=== PATIENT | male | born 1985 | race Caucasian/White ===

== ENCOUNTER 2017-01-14 15:47 | Emergency (ER) | payer OTHER ==
--- NOTE | 2017-01-14 16:24 | EDM.PDOC ---
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 Patient states he heard [facility] brought him in reporting a deformity of his right knee. Patient arrived without obvious deformity and tenderness of the lateral part of his knee Review of systems: As per history of present illness and below otherwise all systems reviewed and negative. Past medical history: As per history of present illness and as reviewed below otherwise noncontributory. Surgical history: As per history of present illness and as reviewed below otherwise noncontributory. Social history: No reported history of drug or alcohol abuse. Family history: As per history of present illness and as reviewed below otherwise noncontributory. Physical exam: General: Well developed, well nourished in NAD HEENT: Atraumatic, normocephalic, pupils reactive, negative for conjunctival pallor or scleral icterus, mucous membranes moist, throat clear, neck supple, nontender, trachea midline. Lungs: Clear to auscultation, breath sounds equal bilaterally, chest nontender. Heart: S1S2, regular, negative for clicks, rubs, or JVD. Abdomen: Soft, nondistended, nontender. Negative for masses or hepatosplenomegaly. Negative for costovertebral tenderness. Pelvis: Stable nontender. Genitourinary: Deferred. Rectal: Deferred. Extremities: Atraumatic, tenderness to palpation of right lateral knee, no effusion, limited range of motion secondary to pain negative for cords or calf pain. Neurovascular unremarkable. Neuro: Awake, alert, oriented. Cranial nerves II through XII unremarkable. Cerebellum unremarkable. Motor and sensory unremarkable throughout. Exam nonfocal. Diagnostics: [] X-ray Therapeutics: [] Knee immobilizer Impression: [] Likely patellar dislocation with spontaneous reduction of leg extension Plan: [] Knee immobilizer, ice, Motrin, followup with Dr. Garcia next week Definitive disposition and diagnosis as appropriate pending reevaluation and review of above. Allergies/ADRs: Allergies cephalexin Allergy (Verified 01/14/17 15:49) Other lamotrigine [From Lamictal] Allergy (Verified 01/14/17 15:49) Other Home Medications: Ambulatory Orders Divalproex Sodium [Depakote] 250 mg PO BID 01/14/17 [Confirmed 01/14/17] PARoxetine [Paxil CR] 25 mg PO DAILY 01/14/17 [Confirmed 01/14/17] Past Medical History Neurological History: Reports: Seizure Other Neuro History: epilepsy Psychiatric History: Reports: Depression - Past Surgical History Neurological Surgical History: Reports: None Social & Family History - Family History Family Medical History: Noncontributory - Caffeine Use Caffeine Use: Reports: Coffee Other Caffeine Use: coffee stimulant supplement - Recreational Drug Use Recreational Drug Use: No Review of Systems - Review of Systems Review Of Systems: See Below (See history of present illness) Trauma Exam - Physical Exam Exam: See Below (See history of present illness) Course - Vital Signs Last Recorded V/S: Last Vital Signs Temp 36.8 C 01/14/17 15:47 Pulse 104 H 01/14/17 15:47 Resp 16 01/14/17 15:47 BP 140/78 01/14/17 15:47 Pulse Ox 94 L 01/14/17 15:47 - Orders/Labs/Meds Orders: Active Orders 24 hr Category Date Time Status Orthopedic Device Education [RC] Click To Edit Care 01/14/17 16:37 Ordered Knee 3V Rt [CR] Stat Exams 01/14/17 15:54 Taken Departure - Departure Time of Disposition: 16:39 Disposition: Home, Self-Care 01 Condition: good Clinical Impression: Internal derangement of right knee Forms: ED Department Discharge Additional Instructions: The following information is given to patients seen in the emergency department who are being discharged to home. This information is to outline your options for follow-up care. We provide all patients seen in our emergency department with a follow-up referral. The need for follow-up, as well as the timing and circumstances, are variable depending upon the specifics of your emergency department visit. If you don't have a primary care physician on staff, we will provide you with a referral. We always advise you to contact your personal physician following an emergency department visit to inform them of the circumstance of the visit and for follow-up with them and/or the need for any referrals to a consulting specialist. The emergency department will also refer you to a specialist when appropriate. This referral assures that you have the opportunity for follow-up care with a specialist. All of these measure are taken in an effort to provide you with optimal care, which includes your follow-up. Under all circumstances we always encourage you to contact your private physician who remains a resource for coordinating your care. When calling for follow-up care, please make the office aware that this follow-up is from your recent emergency room visit. If for any reason you are refused follow-up, please contact the [facility] Emergency Department at and asked to speak to the emergency department charge nurse. Ice, elevate, Motrin for pain, wear knee immobilizer for stability, followup with Dr. Garcia [facility] [address], [address] [place] [address] - My Orders Last 24 Hours: My Active Orders 01/14/17 15:54 Knee 3V Rt [CR] Stat 01/14/17 16:37 Orthopedic Device Education [RC] Click To Edit - Assessment/Plan Last 24 Hours: My Active Orders 01/14/17 15:54 Knee 3V Rt [CR] Stat 01/14/17 16:37 Orthopedic Device Education [RC] Click To Edit
[2017-01-14 16:54] VITALS: BP 138/70
--- NOTE | 2017-01-15 21:42 | CR ---
EXAM DATE: 01/14/17 PATIENT'S AGE: 31 Patient: MARIAA COWAN Facility: [place], [place] Site . Site : 1985 Study: XRay Knee Right [id number]/12/2017 4:11:23 PM Ordering Physician: Boo Holley Final Report: INDICATION: Injury/pain. Twisted. Technique: Three views right knee. Findings: Slight hypertrophic change at the superior patellofemoral compartment. No fracture or dislocation in right knee. Minimal narrowing medial compartment of the right knee. Right knee otherwise negative. Dictated by Marcsu Loera MD @ Jan 14 2017 4:35PM (Electronic Signature) Report Signed by Proxy and Original Signed Document filed in the Medical Record. MTDD
== END 2017-01-14 16:53 | disposition home or self-care (01) ==
LOC: MW.ED 15:47
DX: M23.91 Unspecified internal derangement of right knee (principal); F32.9 Major depressive disorder, single episode, unspecified; Z88.1 Allergy status to other antibiotic agents; Z88.8 Allergy status to other drugs, medicaments and biological substances; X50.1XXA Overexertion from prolonged static or awkward postures, initial encounter
CPT/HCPCS: 73562-26-RT; 73562-RT; 99282; 99284

== ENCOUNTER → 2017-01-25 | Outpatient (CLI) | payer OTHER ==
--- NOTE | 2017-01-25 12:35 | CR ---
EXAMINATION: Right knee HISTORY: Pain COMPARISON: 01/14/2017 TECHNIQUE: 3 views FINDINGS/IMPRESSION: There is no acute osseous, dislocation, or fracture identified. Bone mineraliza tion and joint spaces appear preserved. There is a possible trace suprapatellar joint effusion.
== END ==
LOC: MW.CHORTHO 07:52
PROVIDERS: ATTEND Physician Assistant
DX: M25.561 Pain in right knee (principal)
CPT/HCPCS: 73562-26-RT; 73562-RT

== ENCOUNTER 2017-02-17 17:57 | Emergency (ER) | payer OTHER ==
[2017-02-17] MEDS ORDERED: Ketorolac 60 MG/2 ML SDV IM ONE (18:22)
--- NOTE | 2017-02-17 18:26 | EDM.PDOC ---
ED HPI Trauma - General Chief Complaint: Lower Extremity Injury/Pain Stated Complaint: PAIN RT KNEE Time Seen by Provider: 02/17/17 18:10 Source: Reports: Patient History Limitations: Reports: No limitations - History of Present Illness INITIAL COMMENTS - FREE TEXT/NARRATIVE: History of present illness: [31-year-old male presenting with acute onset right-sided knee pain patient has a history of injury previously approximately a month ago in this knee and while ambulating in [place] [address] his left knee gave out and he landed full force onto his right knee now he is indicating he is having stiffness pain at 7/10 and he is concerned that he might have damaged some of the patella and or cartilage.] Review of systems: As per history of present illness and below otherwise all systems reviewed and negative. Past medical history: As per history of present illness and as reviewed below otherwise noncontributory. Surgical history: As per history of present illness and as reviewed below otherwise noncontributory. Social history: No reported history of drug or alcohol abuse. Family history: As per history of present illness and as reviewed below otherwise noncontributory. Physical exam: HEENT: Atraumatic, normocephalic, pupils reactive, negative for conjunctival pallor or scleral icterus, mucous membranes moist, throat clear, neck supple, nontender, trachea midline. Lungs: Clear to auscultation, breath sounds equal bilaterally, chest nontender. Heart: S1S2, regular, negative for clicks, rubs, or JVD. Abdomen: Soft, nondistended, nontender. Negative for masses or hepatosplenomegaly. Negative for costovertebral tenderness. Pelvis: Stable nontender. Genitourinary: Deferred. Rectal: Deferred. Extremities: Atraumatic, negative for cords or calf pain. Neurovascular unremarkable. Neuro: Awake, alert, oriented. Cranial nerves II through XII unremarkable. Cerebellum unremarkable. Motor and sensory unremarkable throughout. Exam nonfocal. Diagnostics: [X-ray of right knee] Therapeutics: [Toradol 60 mg IM] Impression: [Knee pain] Plan: [Pain meds] Definitive disposition and diagnosis as appropriate pending reevaluation and review of above. Allergies/ADRs: Allergies cephalexin Allergy (Verified 02/17/17 18:20) Other lamotrigine [From Lamictal] Allergy (Verified 02/17/17 18:20) Other Home Medications: Ambulatory Orders Divalproex Sodium [Depakote] 250 mg PO BID 01/14/17 [Confirmed 02/17/17] PARoxetine [Paxil CR] 25 mg PO DAILY 01/14/17 [Confirmed 02/17/17] Past Medical History Neurological History: Reports: Seizure Other Neuro History: epilepsy Psychiatric History: Reports: Depression - Past Surgical History Neurological Surgical History: Reports: None Social & Family History - Family History Family Medical History: Noncontributory - Caffeine Use Caffeine Use: Reports: Coffee Other Caffeine Use: coffee stimulant supplement - Recreational Drug Use Recreational Drug Use: No Review of Systems - Review of Systems Review Of Systems: See Below (See history of present illness) Trauma Exam - Physical Exam Exam: See Below (See history of present illness) Course - Vital Signs Last Recorded V/S: Last Vital Signs Temp 36.2 C 02/17/17 17:59 Pulse 84 02/17/17 17:59 Resp 16 02/17/17 17:59 BP 143/87 H 02/17/17 17:59 Pulse Ox 95 02/17/17 17:59 - Orders/Labs/Meds Orders: Active Orders 24 hr Category Date Time Status Immobilizer [RC] ASDIRECTED Care 02/17/17 19:16 Ordered Knee 3V Rt [CR] Stat Exams 02/17/17 18:22 Taken Meds: Medications Discontinued Medications Generic Name Dose Route Start Last Admin Trade Name Cheyanne PRN Reason Stop Dose Admin Ketorolac Tromethamine 60 mg 02/17/17 18:22 02/17/17 18:56 Toradol IM 02/17/17 18:23 60 mg ONETIME ONE Administration Departure - Departure Time of Disposition: 19:20 Disposition: Home, Self-Care 01 Condition: good Clinical Impression: Knee pain, right Qualifiers: Chronicity: acute Qualified Code(s): M25.561 - Pain in right knee Instructions: Knee Immobilizer, [id number], Crutch Use, [id number] Forms: ED Department Discharge Additional Instructions: The following information is given to patients seen in the emergency department who are being discharged to home. This information is to outline your options for follow-up care. We provide all patients seen in our emergency department with a follow-up referral. The need for follow-up, as well as the timing and circumstances, are variable depending upon the specifics of your emergency department visit. If you don't have a primary care physician on staff, we will provide you with a referral. We always advise you to contact your personal physician following an emergency department visit to inform them of the circumstance of the visit and for follow-up with them and/or the need for any referrals to a consulting specialist. The emergency department will also refer you to a specialist when appropriate. This referral assures that you have the opportunity for follow-up care with a specialist. All of these measure are taken in an effort to provide you with optimal care, which includes your follow-up. Under all circumstances we always encourage you to contact your private physician who remains a resource for coordinating your care. When calling for follow-up care, please make the office aware that this follow-up is from your recent emergency room visit. If for any reason you are refused follow-up, please contact the [facility] Emergency Department at and asked to speak to the emergency department charge nurse. Take Medication as directed Use immobilizer and use crutches as needed Followup with PCP in one to 2 days Followup with the ER as needed as discussed - My Orders Last 24 Hours: My Active Orders 02/17/17 18:22 Knee 3V Rt [CR] Stat 02/17/17 19:16 Immobilizer [RC] ASDIRECTED - Assessment/Plan Last 24 Hours: My Active Orders 02/17/17 18:22 Knee 3V Rt [CR] Stat 02/17/17 19:16 Immobilizer [RC] ASDIRECTED
[2017-02-17 20:09] VITALS: BP 137/85
--- NOTE | 2017-02-19 10:47 | CR ---
EXAM DATE: 02/17/17 PATIENT'S AGE: 31 Patient: MARIAA COWAN Facility: [place], [place] Site . Site : 1985 Study: XRay Knee Right [id number]/15/2017 6:52:22 PM Ordering Physician: Doctor Villa Final Report: Right knee 3 VIEWS INDICATION: Pain. IMPRESSION: No visualized fracture. Alignments anatomic. Preservation of joint space. Possible large knee effusion. This has increased. Comparison: 01/25/2017. Dictated by Gonzalez Geiger MD @ Feb 17 2017 6:59PM (Electronic Signature) Report Signed by Proxy and Original Signed Document filed in the Medical Record. [facility]
== END 2017-02-17 19:45 | disposition home or self-care (01) ==
LOC: MW.ED 17:57
DX: M25.561 Pain in right knee (principal); G40.909 Epilepsy, unspecified, not intractable, without status epilepticus; F32.9 Major depressive disorder, single episode, unspecified; Z79.899 Other long term (current) drug therapy; Z88.1 Allergy status to other antibiotic agents; Z88.8 Allergy status to other drugs, medicaments and biological substances
CPT/HCPCS: 73562; 96372; 99284; J1885; 99283

== ENCOUNTER 2017-06-25 06:28 | Day surgery (SDC) | payer OTHER ==
[~2017-06-25 06:28] MED LIST: Clindamycin Phosphate in D5W 900 MG in Premix Bag 1 BAG IV ONE; Lactated Ringers 1,000 ML IV SCH
[2017-06-25] MEDS ORDERED: Lidocaine 2% 5 ML SDV ONE (07:22)
[2017-06-25] MEDS ORDERED: Propofol 200 MG/20 ML SDV ONE (07:23)
[2017-06-25] MEDS ORDERED: Ketorolac 30 MG/ML SDV ONE (07:24)
[2017-06-25] MEDS ORDERED: Midazolam 1 MG/ML 2 ML SDV ONE (07:24)
[2017-06-25] MEDS ORDERED: Ondansetron 4 MG/2 ML SDV ONE (07:24)
[2017-06-25] MEDS ORDERED: fentaNYL 100 MCG/2 ML SDV ONE ×2 (07:24→07:28)
--- NOTE | 2017-06-25 07:26 | PCM.PREANE ---
Preanesthetic Assessment - Anesthesia/Transfusion/Family Hx Anesthesia History: Prior Anesthesia Without Reaction Family History of Anesthesia Reaction: No Transfusion History: No Prior Transfusion(s) - Review of Systems General: No Symptoms Pulmonary: No Symptoms Cardiovascular: No Symptoms Gastrointestinal: No Symptoms Neurological: No Symptoms Other: Reports: None - Physical Assessment NPO Status Date: 06/25/17 NPO Status Time: 00:00 O2 Sat by Pulse Oximetry: 94 Respiratory Rate: 16 Vital Signs: Last Vital Signs Temp 36.9 C 06/25/17 06:30 Pulse 73 06/25/17 06:30 Resp 16 06/25/17 06:30 BP 101/80 06/25/17 06:30 Pulse Ox 94 L 06/25/17 06:30 Height: 1.85 m Weight: 142.882 kg ASA Class: 3 Mental Status: Alert & Oriented x3 Airway Class: Mallampati = 1 Dentition: Reports: Normal Dentition ROM/Head Extension: Full Lungs: Clear to Auscultation, Normal Respiratory Effort Cardiovascular: Regular Rate, Regular Rhythm - Allergies Allergies/Adverse Reactions: Allergies Allergy/AdvReac Type Severity Reaction Status Date / Time cephalexin Allergy Cannot Verified 06/25/17 07:07 Remember lamotrigine [From Lamictal] Allergy decreased Verified 06/25/17 07:07 white cell blood count - Anesthesia Plan Pre-Op Medication Ordered: None - Acknowledgements Anesthesia Type Planned: General Anesthesia Pt an Appropriate Candidate for the Planned Anesthesia: Yes Alternatives and Risks of Anesthesia Discussed w Pt/Guardian: Yes Pt/Guardian Understands and Agrees with Anesthesia Plan: Yes Additional Comments: pmh: [place], [place], smoker, seizure disorder (last seizure 2007), exercise induces asthma. 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 yrs ago - Infectious Disease History Infectious Disease History: Reports: MRSA - Past Surgical History Head Surgeries/Procedures: Reports: None HEENT Surgical History: Reports: Adenoidectomy, Tonsillectomy Other HEENT Surgeries/Procedures: hx of T&A with uvulectomy for diagnosis of sleep apnea Neurological Surgical History: Reports: None - SUBSTANCE USE Smoking Status *Q: Never Smoker Tobacco Use Within Last Twelve Months: Snuff/Dip Recreational Drug Use History: No - HOME MEDS Home Medications: Home Meds Divalproex Sodium [Depakote] 250 mg PO BID 01/14/17 [History] PARoxetine [Paxil CR] 20 mg PO DAILY 01/14/17 [History] Fluticasone Propionate [Flonase Allergy Relief] 1 spray NASBOTH ASDIRECTED 06/19 [History] - CURRENT (IN HOUSE) MEDS Current Meds: Current Medications Hydrocodone Bitart/Acetaminophen ([place] 325-5 Mg) 1 - 2 tab PO Q4H PRN PRN Reason: Pain Lactated Ringer's (Ringers, Lactated) 1,000 mls @ 100 mls/hr IV ASDIRECTED [facility] Last Admin: 06/25/17 06:55 Dose: 100 mls/hr Discontinued Medications Clindamycin Phosphate 900 mg/ (Premix) 50 mls @ 100 mls/hr IV ONETIME ONE Stop: 06/25/17 06:29
[2017-06-25] MEDS ORDERED: Lidocaine 1% 20 ML MDV ONE (07:45)
[2017-06-25] MEDS ORDERED: Acetaminophen/HYDROcodone 325-5 MG Tab PO PRN (08:00)
[2017-06-25] MEDS ORDERED: fentaNYL 100 MCG/2 ML SDV IVPUSH PRN (09:06)
--- NOTE | 2017-06-25 10:55 | PCM.OPNOTE ---
- General Post-Op/Procedure Note Date of Surgery/Procedure: 06/25/17 Operative Procedure(s): R knee arthroscopy with PLM/PMM Post-Op Diagnosis: R knee partial ACL tear, med/lat meniscus tear Anesthesia Technique: General LMA Primary Surgeon: Najma Garcia [employer] Systems Administrator: Max Polo in mLs: 5 Condition: Good Free Text/Narrative:: tt=23 min #[id number] Intake & Output 06/24/17 06/25/17 06/25/17 22:59 06:59 14:59 Intake Total 900 Balance 900
--- NOTE | 2017-06-25 12:41 | PCM.POSTAN ---
POST ANESTHESIA ASSESSMENT - MENTAL STATUS Mental Status: Alert, Oriented - RESPIRATORY Respiratory Status: Respiratory Rate WNL, Airway Patent, O2 Saturation Stable - CARDIOVASCULAR CV Status: Pulse Rate WNL, Blood Pressure Stable - GASTROINTESTINAL GI Status: No Symptoms - POST OP HYDRATION Hydration Status: Adequate & Stable
--- NOTE | 2017-06-25 12:42 | PCM48HPAN ---
Post Anesthesia Note - EVALUATION WITHIN 48HRS OF ANESTHETIC Vital Signs in Normal Range: Yes Patient Participated in Evaluation: Yes Respiratory Function Stable: Yes Airway Patent: Yes Cardiovascular Function Stable: Yes Hydration Status Stable: Yes Pain Control Satisfactory: Yes Nausea and Vomiting Control Satisfactory: Yes Mental Status Recovered: Yes
[2017-06-25 12:53] VITALS: BP 109/65
--- NOTE | 2017-06-25 14:17 | OR ---
SURGEON: Najma Garcia MD DATE OF PROCEDURE: 06/25/2017 PREOPERATIVE DIAGNOSES: 1. Right knee medial meniscus tear. 2. Right knee lateral meniscus tear. POSTOPERATIVE DIAGNOSES: 1. Right knee medial meniscus tear. 2. Right knee lateral meniscus tear. 3. Right knee partial anterior cruciate ligament tear. PROCEDURES: Right knee arthroscopy with partial, medial, and lateral meniscectomy. TANK STAVE ASSEMBLER: Max Polo PA-C. ANESTHESIA: General. ESTIMATED BLOOD LOSS: 5 mL. TOURNIQUET TIME: 23 minutes. COMPLICATIONS: None. DVT PROPHYLAXIS: Not indicated. IMPLANTS USED: None. BRIEF HISTORY: Brian is a 32-year-old male, who has had complaint of right knee pain. He had failed conservative treatment. Due to his lack of response to conservative treatment, I did recommend surgical intervention. The risks and goals of procedure were discussed with the patient and were documented preoperatively. He agreed to proceed. DESCRIPTION OF PROCEDURE: The patient was properly identified and brought to the operating room. He was transferred from the OR cart and placed on the operating room table in supine position. General anesthesia was administered. After adequate anesthesia was obtained, a well-padded tourniquet was applied to the right lower extremity. The right lower extremity was then prepped in standard fashion using ChloraPrep solution. It was then sterilely draped. A time-out was performed to ensure correct site and procedure. Preoperative antibiotics were given. The surgical site had been marked preoperatively. An Esmarch was used to exsanguinate the right lower extremity and the tourniquet was inflated to 250 mmHg. A lateral portal arthrotomy was established. Blunt trocar and cannula were introduced into the suprapatellar pouch. Camera, inflow, and outflow were assembled. No signs of synovitis were noted. The patella patellofemoral joint was visualized. There was an area of cartilage damage along the superolateral aspect of the patella. There was minor degenerative changes along the central portion of the trochlear groove as well. The patella appeared to track centrally. I then extended down the lateral and medial gutter. No loose bodies were identified. I then entered the medial compartment. A medial portal arthrotomy was established. A blunt probe was inserted. He was found to have a bucket-handle tear of the medial meniscus. This was in the white zone and was not amenable to repair. Using a combination of biters and iram, the meniscus tear was resected without difficulty. A shaver was used to smooth the edges. The meniscus was again probed and the remainder was found to be stable. 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 This did have some loose cartilage and a chondroplasty was also performed. I then entered the notch. The ACL was visualized. The anterior portion appeared to be torn and was scarred to the PCL. He did have a portion that remained attached to the lateral femoral condyle posteriorly. The PCL was also probed and found to be intact. I then entered the lateral compartment. Again, noted was a bucket-handle tear of the lateral meniscus at the white zone, which again was not amenable to repair. Using a combination of biters and shaver, this was resected back to a stable remnant. The meniscus was then extensively probed and the remainder was found to be stable. The joint surfaces showed minor grade 1 chondromalacia only. I then re-entered the patellofemoral joint. The area of chondromalacia which measured approximately 5 mm x 5 mm over the lateral facet of the patella was inspected. There were some loose cartilage pieces and a chondroplasty was performed. No remaining loose fragments were identified. The instruments were then removed from the knee. The portal sites were closed with 3-0 nylon. Lidocaine 1% was injected along the portal tracts. Xeroform gauze was placed over the wound and a bulky dressing was applied. The tourniquet was then deflated. At the completion, I did perform both an anterior drawer and pivot-shift test on him. He did have mild anterior translation with anterior drawer testing and did show a negative pivot-shift. He was awakened from his anesthetic and transferred back to the operating room cart. He was brought to recovery room in stable condition. All needle and sponge counts were correct. ELENA / KWASI /[id number]
== END 2017-06-25 11:05 | disposition home or self-care (01) ==
LOC: MW.SDS 06:28
PROVIDERS: ATTEND Orthopaedic Surgery
DX: S83.211A Bucket-handle tear of medial meniscus, current injury, right knee, initial encounter (principal); S83.251A Bucket-handle tear of lateral meniscus, current injury, right knee, initial encounter; M17.11 Unilateral primary osteoarthritis, right knee; M94.261 Chondromalacia, right knee; S83.511A Sprain of anterior cruciate ligament of right knee, initial encounter; J45.909 Unspecified asthma, uncomplicated; G40.909 Epilepsy, unspecified, not intractable, without status epilepticus; F41.9 Anxiety disorder, unspecified; F32.9 Major depressive disorder, single episode, unspecified; Z86.14 Personal history of Methicillin resistant Staphylococcus aureus infection; Z88.1 Allergy status to other antibiotic agents; Z88.8 Allergy status to other drugs, medicaments and biological substances; Z90.89 Acquired absence of other organs; Z98.890 Other specified postprocedural states; Z79.899 Other long term (current) drug therapy
CPT/HCPCS: 29880; J2250; J2405; J3010; J7120; 01400; 88304; J1885; J2704

== ENCOUNTER 2017-09-19 12:33 | Day surgery (SDC) | payer OTHER ==
[~2017-09-19 12:33] MED LIST changes: +Acetaminophen/HYDROcodone 325-10 MG Tab PO PRN; -Clindamycin Phosphate in D5W 900 MG in Premix Bag 1 BAG IV ONE; +Clindamycin Phosphate in D5W 900 MG in Premix Bag 1 BAG IV SCH; +Ketorolac 10 MG Tab PO SCH; +Lidocaine 1% 20 ML MDV ONE
--- NOTE | 2017-09-19 13:53 | PCM.PREANE ---
Preanesthetic Assessment - Procedure Proposed Procedure: Right knee arthroscopy and ACL reconstruction - Anesthesia/Transfusion/Family Hx Anesthesia History: Prior Anesthesia Without Reaction (June arthroscopy with menisectomy) Family History of Anesthesia Reaction: No Transfusion History: No Prior Transfusion(s) Intubation History: Unknown - Review of Systems General: No Symptoms, Other (Obesity) Pulmonary: Other (Asthmatic) Cardiovascular: No Symptoms Gastrointestinal: No Symptoms Neurological: Seizure (took Depakote at 10am today; etiology undetermined - since 2004. no seizure since 2007.) Other: Reports: Depression, Anxiety - Physical Assessment NPO Status Date: 09/18/17 NPO Status Time: 23:55 O2 Sat by Pulse Oximetry: 93 Respiratory Rate: 16 Vital Signs: Last Vital Signs Temp 96.8 F 09/19/17 13:26 Pulse 73 09/19/17 13:26 Resp 16 09/19/17 13:26 BP 139/73 09/19/17 13:26 Pulse Ox 93 L 09/19/17 13:26 Height: 6 ft Weight: 324 lb ASA Class: 3 Mental Status: Alert & Oriented x3 Airway Class: Mallampati = 1 Dentition: Reports: Normal Dentition Thyro-Mental Finger Breadths: 3 Mouth Opening Finger Breadths: 3 ROM/Head Extension: Full Lungs: Clear to Auscultation, Normal Respiratory Effort Cardiovascular: Regular Rate, Regular Rhythm, No Murmurs Other: wears glasses - Allergies Allergies/Adverse Reactions: Allergies Allergy/AdvReac Type Severity Reaction Status Date / Time cephalexin Allergy Cannot Verified 06/25/17 07:07 Remember lamotrigine [From Lamictal] Allergy decreased Verified 06/25/17 07:07 white cell blood count - Blood Blood Available: No Product(s) Available: None - Acknowledgements Anesthesia Type Planned: General Anesthesia Pt an Appropriate Candidate for the Planned Anesthesia: Yes Alternatives and Risks of Anesthesia Discussed w Pt/Guardian: Yes Pt/Guardian Understands and Agrees with Anesthesia Plan: Yes PreAnesthesia Questionnaire HEENT History: Reports: Other (See Below) Other HEENT History: wears glasses Respiratory History: Reports: Asthma Musculoskeletal History: Reports: None Neurological History: Reports: Seizure Other Neuro History: epilepsy Psychiatric History: Reports: Anxiety, Depression Endocrine/Metabolic History: Reports: Obesity/BMI 30+ Immunologic History: Reports: Other (See Below) Other Immunologic History: 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 yrs ago - Infectious Disease History Infectious Disease History: Reports: MRSA - Past Surgical History Head Surgeries/Procedures: Reports: None HEENT Surgical History: Reports: Adenoidectomy, Tonsillectomy Other HEENT Surgeries/Procedures: hx of T&A with uvulectomy for diagnosis of sleep apnea Neurological Surgical History: Reports: None Musculoskeletal Surgical History: Reports: Arthroscopic Knee - SUBSTANCE USE Smoking Status *Q: Never Smoker Tobacco Use Within Last Twelve Months: Snuff/Dip Recreational Drug Use History: No - HOME MEDS Home Medications: Home Meds Divalproex Sodium [Depakote] 750 mg PO BID 01/14/17 [History] PARoxetine [Paxil CR] 20 mg PO DAILY 01/14/17 [History] Fluticasone Propionate [Flonase Allergy Relief] 1 spray NASBOTH ASDIRECTED PRN 06/19/17 [History] Albuterol Sulfate [Proair Hfa] 2 puff INH ASDIRECTED PRN 09/14/17 [History] - CURRENT (IN HOUSE) MEDS Current Meds: Current Medications Hydrocodone Bitart/Acetaminophen (Sperry 325-10 Mg) 1 - 2 tab PO Q4H PRN PRN Reason: Pain Lactated Ringer's (Ringers, Lactated) 1,000 mls @ 100 mls/hr IV ASDIRECTED SAMI Last Admin: 09/19/17 13:38 Dose: 100 mls/hr Vancomycin HCl 1 gm/ Sodium (Chloride) 250 mls @ 250 mls/hr IV ONETIME ONE Stop: 09/19/17 14:32 Last Admin: 09/19/17 13:43 Dose: 250 mls/hr Ketorolac Tromethamine (Toradol) 10 mg PO Q6H [facility] Stop: 09/24/17 08:01 Discontinued Medications Clindamycin Phosphate 900 mg/ (Premix) 50 mls @ 100 mls/hr IV ONCALL SAMI Stop: 09/19/17 13:35 Lidocaine HCl (Xylocaine 1%) Confirm Administered Dose 20 ml .ROUTE .STK-MED ONE Stop: 09/18/17 15:04
[2017-09-19] MEDS ORDERED: Propofol 200 MG/20 ML SDV ONE ×3 (15:27→19:30)
[2017-09-19] MEDS ORDERED: Lidocaine 2% 5 ML SDV ONE ×2 (15:27→15:29)
[2017-09-19] MEDS ORDERED: fentaNYL 250 MCG/5 ML SDV ONE (15:28)
[2017-09-19] MEDS ORDERED: Midazolam 1 MG/ML 2 ML SDV ONE (15:28)
[2017-09-19] MEDS ORDERED: fentaNYL 100 MCG/2 ML SDV ONE (15:28)
[2017-09-19] MEDS ORDERED: HYDROmorphone 2 MG/ML Syringe ONE (15:34)
[2017-09-19] MEDS ORDERED: Rocuronium 10 MG/ML 10 ML Syringe ONE (15:35)
[2017-09-19] MEDS ORDERED: Succinylcholine/Normal Saline 200 MG/10 ML Syringe ONE (15:35)
[2017-09-19] MEDS ORDERED: Ondansetron 4 MG/2 ML SDV ONE (18:07)
[2017-09-19] MEDS ORDERED: Ketorolac 30 MG/ML SDV ONE (18:08)
[2017-09-19] MEDS ORDERED: HYDROmorphone 2 MG/ML Syringe IVPUSH ONE (19:05)
[2017-09-19] MEDS ORDERED: fentaNYL 100 MCG/2 ML SDV IVPUSH PRN (19:05)
--- NOTE | 2017-09-19 20:31 | PCM.OPNOTE ---
- General Post-Op/Procedure Note Date of Surgery/Procedure: 09/19/17 Operative Procedure(s): R knee arthroscopy with partial medial menisectomy and arthroscopically aided ACL reconstruction with allograft Post-Op Diagnosis: R knee medial meniscus tear, ACL tear Anesthesia Technique: General ET Tube Primary Surgeon: Najma Garcia Progressive Assembler And Fitter: Max Polo in mLs: 10 Condition: Good Free Text/Narrative:: tt=72 min #[id number]
--- NOTE | 2017-09-19 21:04 | PCM.POSTAN ---
POST ANESTHESIA ASSESSMENT - MENTAL STATUS Mental Status: Oriented, Somnolent Free Text/Narrative:: Remains sleepy after several hours of anesthesia, but is comfortable i.e. limited pain. - VITAL SIGNS Pulse Rate: 75 SaO2: 93 Resp Rate: 12 Blood Pressure: 123/64 - RESPIRATORY Respiratory Status: Respiratory Rate WNL, Airway Patent, O2 Saturation Stable, Supplemental Oxygen - CARDIOVASCULAR CV Status: Pulse Rate WNL, Blood Pressure Stable - GASTROINTESTINAL GI Status: No Symptoms - POST OP HYDRATION Hydration Status: Adequate & Stable
--- NOTE | 2017-09-19 23:28 | OR ---
SURGEON: Najma Garcia MD DATE OF PROCEDURE: 09/19/2017 PREOPERATIVE DIAGNOSIS: Right knee anterior cruciate ligament tear. POSTOPERATIVE DIAGNOSES: 1. Right knee anterior cruciate ligament tear. 2. Right knee medial meniscus tear. PROCEDURES: Right knee arthroscopy with: 1. Partial medial meniscectomy. 2. Arthroscopically aided anterior cruciate ligament reconstruction using allograft. MARKETING CONTENT SPECIALIST: Max Polo PA-C. ANESTHESIA: General. ESTIMATED BLOOD LOSS: 10 mL. TOURNIQUET TIME: 72 minutes. COMPLICATIONS: None. DVT PROPHYLAXIS: PAS boot to the nonoperative leg. IMPLANTS USED: Arthrex ACL TightRope fixation system. BRIEF HISTORY: Brian is a 32-year-old male, who has had complaint of progressive right knee pain. An MRI did show a tear of the anterior cruciate ligament. Due to his lack of response to conservative treatment, I did recommend surgical intervention. The risks and goals of procedure were discussed with the patient and were documented preoperatively. He agreed to proceed. DESCRIPTION OF PROCEDURE: The patient was properly identified and brought to the operating room. He was transferred from the OR cart and placed on the operating room table in supine position. General anesthesia was administered. After adequate anesthesia was obtained, a well-padded tourniquet was applied to the right lower extremity. The right lower extremity was then prepped in standard fashion using ChloraPrep solution. It was then sterilely draped. A time-out was performed to ensure correct site and procedure. Preoperative antibiotics were given. The surgical site had been marked preoperatively. An Esmarch was used to exsanguinate the right lower extremity and the tourniquet was inflated to 300 mmHg. A lateral portal arthrotomy was established. Blunt trocar and cannula were introduced into the suprapatellar pouch. Camera, inflow, and outflow were assembled. Suprapatellar pouch showed no significant synovitis. The patellofemoral joint was visualized. 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 No significant degenerative changes were noted along the trochlea. The patella appeared to track centrally. I then extended down the lateral and medial gutter. No loose bodies were identified. I then entered the medial compartment. A medial portal arthrotomy was established. A blunt probe was inserted. The meniscus was probed. He was found to have a radial tear of the posterior horn of the medial meniscus with a split thickness tear as well. Using a combination of biter and shaver, this was resected back to a stable remnant. It was again probed and found to be stable. The joint surfaces showed minor grade 1 to grade 2 chondromalacia changes. I then entered the notch. The ACL was visualized, however, it appeared to be scarred to the posterior cruciate ligament. It did not have any firm attachment to the lateral femoral condyle. The PCL was probed and found to be stable. I then entered the lateral compartment. The lateral meniscus showed minor degenerative fraying along the central portion. It was probed and found to be stable. No significant degenerative changes were noted. I then re-entered the notch. A portion of the ACL was removed, where it was scarred to the PCL. A portion of the origin of the ACL on the tibial plateau was kept intact to aid in proprioception. The wall of the lateral femoral condyle was then cleared. A small notchplasty was performed to aid in visualization. A large curette was used to clear the soft tissue posteriorly to make sure we had adequate visualization of the entire wall. The allograft was prepared in standard fashion on the back table. It was appropriately measured. The tibial guide was then inserted. An incision was made over the proximal medial tibia. The subcutaneous tissues were incised down to the level of the bone. The periosteum was elevated and cleared. The guide was then placed approximately 7 mm anterior to the posterior cruciate ligament, just parallel to the anterior horn of the lateral meniscus. A guide pin was then drilled through the guide. I felt that the position was appropriate. The graft measured 8.5 mm. I elected to use a 9 mm reamer through the tibia. The tibia was reamed over the guide pin. A shaver was used to remove the bony debris and a rasp was used to smooth the posterior edge of the tibial tunnel. A cannula was then placed to aid in water retention. The camera was then changed to the medial portal. The femoral guide was then placed. The incisions were made over the lateral aspect of the distal femur. The subcutaneous tissues were incised. The iliotibial band was also incised and the tissues were spread. The cannula was placed down to the bone. The femoral guide was then held in position as the FlipCutter guide pin was placed. It was felt that its position was adequate. An 8.5 mm FlipCutter was used. This was flipped and retrograde reamed to a distance of 30 mm. It was felt that the tunnel was then nearly anatomic position. The FlipCutter was then removed and was replaced with a suture guide. This was passed through the tibia as well. The end of the graft was then passed through the tibial suture and this was pulled through into the femoral tunnel. The EndoButton was flipped over the lateral cortex of the femur. C-arm imaging confirmed adequate placement of the EndoButton on the lateral femoral cortex. The graft was then watched arthroscopically as it was passed into the femoral tunnel. We advanced this approximately 25 mm. We had marked approximately 25 mm from the proximal and distal ends and both these were able to be visualized in the femur and tibia confirming adequate graft within the tibia and femur. Traction was held on the tibial suture as the knee was taken through a range of motion. No pistoning was noted. There appeared to be no impingement of the graft on either the PCL or the notch. The knee was then brought into full extension. A TightRope button was then placed and the TightRope was cinched into place. This provided good fill of the proximal tibia tunnel. The knee was again taken through a range of motion with arthroscopic visualization, which confirmed good tensioning of the graft. A Nicolasa's test was performed and no laxity was noted. The sutures were then tied over the button. The tourniquet was deflated. The deep tissues were closed with 0 Vicryl over the tibia and the subcutaneous tissues were closed with 2-0 Vicryl. The distal femur wound was closed in a similar manner. A running 4-0 Monocryl suture was used for both wounds. 4-0 nylon was used for the arthroscopic portals. Lidocaine 1% was injected along the incision sites. Xeroform gauze was placed over the wound and a bulky dressing was applied. A bulky dressing was applied. He was placed into a Guillaume brace locked in full extension. He was awakened from his anesthetic and transferred back to the operating room cart. He was brought to recovery room in stable condition. All needle and sponge counts were correct. ELENA / KWASI /[id number]
[2017-09-20 02:04] VITALS: BP 132/78
--- NOTE | 2017-09-20 12:04 | CR ---
EXAMINATION: Right knee HISTORY: Surgery COMPARISON: 06/11/2017 TECHNIQUE: Single view FINDINGS/IMPRESSION: A single operative control of the abdomen demonstrates postoperative changes sec ondary to ACL repair.
== END 2017-09-19 23:30 | disposition home or self-care (01) ==
LOC: MW.SDS 12:33
PROVIDERS: ATTEND Orthopaedic Surgery
DX: S83.511A Sprain of anterior cruciate ligament of right knee, initial encounter (principal); S83.241A Other tear of medial meniscus, current injury, right knee, initial encounter; M22.41 Chondromalacia patellae, right knee; F32.9 Major depressive disorder, single episode, unspecified; F41.9 Anxiety disorder, unspecified; G40.909 Epilepsy, unspecified, not intractable, without status epilepticus; I10 Essential (primary) hypertension; J45.909 Unspecified asthma, uncomplicated; E66.9 Obesity, unspecified; Z68.41 Body mass index [BMI] 40.0-44.9, adult; Z88.1 Allergy status to other antibiotic agents; Z88.8 Allergy status to other drugs, medicaments and biological substances; Z79.51 Long term (current) use of inhaled steroids; Z79.899 Other long term (current) drug therapy; Z86.14 Personal history of Methicillin resistant Staphylococcus aureus infection; Z98.890 Other specified postprocedural states; Z83.3 Family history of diabetes mellitus; Z91.5 Personal history of self-harm
CPT/HCPCS: 29881; 29888; 76000; J1170; J1885; J2250; J2405; J3010; J3370; J7050; J7120; 01400; 88304; C1762; C1776; J2704